=== PATIENT | female | born 1955 | race Caucasian/White ===

== ENCOUNTER 2018-10-31 16:24 | Emergency (ER) | payer OTHER ==
[2018-10-31] MEDS: SOD CHLORIDE 0.9% 1,000 ML IV (17:30)
[2018-10-31] MEDS: CEFTRIAXONE 1 GM/50 ML (PMX) 50 ML IVPB (17:31)
[2018-10-31] MEDS: ALBUTEROL 0.083% (NEB) 2.5 MG/3 ML AMP HHN (17:36)
[2018-10-31] MEDS: IPRATROPIUM (NEB) 0.5 MG/2.5 ML AMP HHN (17:36)
[2018-10-31 17:37] LABS: ADD UMIC YES; UR ASCORBIC ACID NEGATIVE (NEGATIVE); UR BILIRUBIN (Dip) NEGATIVE (NEGATIVE); UR BLOOD (Dip) NEGATIVE (NEGATIVE); UR CLARITY SLIGHTLY CLOUDY (CLEAR); UR COLOR YELLOW (YELLOW); UR GLUCOSE (Dip) 3+ mg/dL (NEGATIVE); UR KETONES (Dip) NEGATIVE (NEGATIVE); UR LEUKOCYTE ESTERASE (Dip) TRACE Leu/ul (NEGATIVE); UR NITRITE (Dip) NEGATIVE (NEGATIVE); UR RBC 2 /HPF (0-5); UR SPECIFIC GRAVITY (Dip) 1.018 (1.003-1.030); UR SQUAMOUS EPITHELIAL CELL FEW /HPF (FEW); UR TOTAL PROTEIN (Dip) 3+ mg/dl (NEGATIVE); UR UROBILINOGEN (Dip) NEGATIVE (NEGATIVE); UR WBC 11 /HPF (0-5)
[2018-10-31 17:45] LABS: ADD MAN DIFF? NO
[2018-10-31 17:47] LABS: BASOPHILS % 0.2 % (0.0-2.0); HEMATOCRIT 35.2 % (37.0-47.0); HEMOGLOBIN 11.5 g/dl (12.0-16.0); LYMPHOCYTES # 2.5 10^3/ul (0.8-2.9); MEAN CORPUSCULAR HEMOGLOBIN 30.2 pg (29.0-33.0); MEAN CORPUSCULAR HGB CONC 32.7 g/dl (32.0-37.0); MEAN CORPUSCULAR VOLUME 92.4 fl (82.0-101.0); MEAN PLATELET VOLUME 10.5 fl (7.4-10.4); MONOCYTE # 0.9 10^3/ul (0.3-0.9); NEUTROPHIL # 14.4 10^3/ul (1.6-7.5); NEUTROPHILS % 80.3 % (39.0-77.0); NUCLEATED RED BLOOD CELLS # 0.2 10^3/ul (0.0-0.0); NUCLEATED RED BLOOD CELLS% 0.9 /100WBC (0.0-0.0); PLATELET COUNT 350 10^3/UL (140-415); RED BLOOD COUNT 3.81 10^6/ul (4.20-5.40); RED CELL DISTRIBUTION WIDTH 13.2 % (11.5-14.5)
[2018-10-31] MEDS ORDERED: SODIUM CHLORIDE 0.9% 1L BAG IV* (17:52)
[2018-10-31 18:08] LABS: ANION GAP 21 (5-13); BLOOD UREA NITROGEN 70 mg/dl (7-20); CALCIUM 8.8 mg/dl (8.4-10.2); CARBON DIOXIDE 21 mmol/L (21-31); CHLORIDE 87 mmol/L (97-110); CREATININE 1.94 mg/dl (0.44-1.00); Estimated GFR 26 mL/min (>60); POTASSIUM 5.1 mmol/L (3.5-5.1); SODIUM 129 mmol/L (135-144)
[2018-10-31 18:17] LABS: GLUCOSE 526 mg/dl (70-220)
[2018-10-31] MEDS: AZITHROMYCIN 500MG/NS (PMX) 250 ML IV (18:36)
[2018-10-31] MEDS: ASPIRIN 325 MG TAB PO (18:52)
[2018-10-31] MEDS: INSULIN LISPRO 100 UNIT/ML VIAL SC (18:58)
[2018-10-31 18:59] LABS: INR 1.09; PROTIME 14.2 Sec (11.9-14.9); PT RATIO 1.1
[2018-10-31 19:00] LABS: PARTIAL THROMBOPLASTIN TIME 29.6 Sec (23.0-35.0)
[2018-10-31 19:05] LABS: LACTIC ACID 9.2 mmol/L (0.5-2.0)
[2018-10-31] MEDS: ACETAMINOPHEN 325 MG TAB PO (19:09)
== END 2018-10-31 19:24 | disposition short-term general hospital (02) ==
LOC: FTE 16:24 → E/R 19:24
DX: I21.01 ST elevation (STEMI) myocardial infarction involving left main coronary artery (principal); R06.02 Shortness of breath; R74.0 Nonspecific elevation of levels of transaminase and lactic acid dehydrogenase [LDH]; E11.65 Type 2 diabetes mellitus with hyperglycemia; R40.2252 Coma scale, best verbal response, oriented, at arrival to emergency department; R40.2362 Coma scale, best motor response, obeys commands, at arrival to emergency department; R40.2142 Coma scale, eyes open, spontaneous, at arrival to emergency department; I10 Essential (primary) hypertension; M54.9 Dorsalgia, unspecified; Z79.4 Long term (current) use of insulin
CPT/HCPCS: 71045; 80048; 81001; 82962; 83605; 84484; 85025; 85610; 85730; 87040; 87086; 87400; 93005; 94664; 96372; 96374; 96375; 99291-25

== ENCOUNTER 2019-01-24 12:17 | Inpatient (IN) | payer OTHER ==
[2019-01-24 15:52] LABS: ADD MAN DIFF? NO
[2019-01-24 15:56] LABS: WHITE BLOOD COUNT 10.2 10^3/ul (4.8-10.8)
[2019-01-24 15:56] LABS: BASOPHILS % 0.3 % (0.0-2.0); EOSINOPHILS % 0.2 % (0.0-7.0); HEMATOCRIT 44.9 % (37.0-47.0); HEMOGLOBIN 14.5 g/dl (12.0-16.0); LYMPHOCYTES # 3.5 10^3/ul (0.8-2.9); LYMPHOCYTES % 34.4 % (15.0-51.0); MEAN CORPUSCULAR HEMOGLOBIN 29.3 pg (29.0-33.0); MEAN CORPUSCULAR HGB CONC 32.3 g/dl (32.0-37.0); MEAN CORPUSCULAR VOLUME 90.7 fl (82.0-101.0); MEAN PLATELET VOLUME 10.2 fl (7.4-10.4); MONOCYTE # 0.4 10^3/ul (0.3-0.9); MONOCYTES % 4.2 % (0.0-11.0); NEUTROPHIL # 6.2 10^3/ul (1.6-7.5); NEUTROPHILS % 60.5 % (39.0-77.0); PLATELET COUNT 393 10^3/UL (140-415); RED BLOOD COUNT 4.95 10^6/ul (4.20-5.40); RED CELL DISTRIBUTION WIDTH 14.6 % (11.5-14.5)
[2019-01-24 16:12] LABS: ANION GAP 14 (5-13); BLOOD UREA NITROGEN 21 mg/dl (7-20); CALCIUM 10.2 mg/dl (8.4-10.2); CARBON DIOXIDE 30 mmol/L (21-31); CHLORIDE 99 mmol/L (97-110); CREATININE 0.93 mg/dl (0.44-1.00); Estimated GFR > 60 mL/min (>60); GLUCOSE 186 mg/dl (70-220); POTASSIUM 4.4 mmol/L (3.5-5.1); SODIUM 143 mmol/L (135-144)
[2019-01-24 16:23] LABS: TROPONIN-I 0.022 ng/ml (0.000-0.120)
[2019-01-24] MEDS ORDERED: ONDANSETRON 4 MG INJ IV ×2 (18:30→20:30)
[2019-01-24] MEDS ORDERED: ACETAMINOPHEN 325 MG TAB PO (18:30)
[2019-01-24] MEDS ORDERED: GLUCAGON 1 MG INJ IM (20:30)
[2019-01-24] MEDS ORDERED: morphine 2 MG INJ IV (20:30)
[2019-01-24] MEDS ORDERED: NACL 0.9% 3 ML SYG IV (20:30)
[2019-01-24] MEDS ORDERED: GLUCOSE GEL 15 GRAM TUBE PO ×2 (20:30)
[2019-01-24] MEDS ORDERED: DEXTROSE 50% 50 ML SYRINGE IV ×2 (20:30)
[2019-01-24] MEDS ORDERED: GLUCOSE GEL 15 GRAM TUBE BUCCAL (20:30)
[2019-01-24] MEDS: ACCU-CHEK XX (21:00)
[2019-01-24] MEDS: FERROUS SULFATE (EC) 325 MG TAB PO (21:30)
[2019-01-24] MEDS: SENNA TAB PO (21:31)
[2019-01-24] MEDS: metFORMIN 850 MG TAB PO (21:31)
[2019-01-24] MEDS: ATORVASTATIN 40 MG TAB PO (21:32)
[2019-01-24] MEDS: FAMOTIDINE 20 MG INJ IV (21:32)
[2019-01-24] MEDS: INSULIN ASP PROT/ASPART (70/30) PEN SC (22:48)
[2019-01-25] MEDS: ACCU-CHEK XX ×5 (02:00→21:00)
[2019-01-25 05:37] LABS: ADD MAN DIFF? NO
[2019-01-25 05:39] LABS: WHITE BLOOD COUNT 11.4 10^3/ul (4.8-10.8)
[2019-01-25 05:39] LABS: BASOPHILS % 0.4 % (0.0-2.0); EOSINOPHILS % 0.4 % (0.0-7.0); HEMATOCRIT 41.4 % (37.0-47.0); HEMOGLOBIN 13.4 g/dl (12.0-16.0); LYMPHOCYTES # 3.8 10^3/ul (0.8-2.9); LYMPHOCYTES % 33.2 % (15.0-51.0); MEAN CORPUSCULAR HEMOGLOBIN 29.5 pg (29.0-33.0); MEAN CORPUSCULAR HGB CONC 32.4 g/dl (32.0-37.0); MEAN PLATELET VOLUME 10.2 fl (7.4-10.4); MONOCYTE # 0.7 10^3/ul (0.3-0.9); MONOCYTES % 6.3 % (0.0-11.0); NEUTROPHIL # 6.8 10^3/ul (1.6-7.5); NEUTROPHILS % 59.3 % (39.0-77.0); PLATELET COUNT 365 10^3/UL (140-415); RED BLOOD COUNT 4.55 10^6/ul (4.20-5.40); RED CELL DISTRIBUTION WIDTH 14.7 % (11.5-14.5)
[2019-01-25 06:30] LABS: ALANINE AMINOTRANSFERASE 21 IU/L (13-69); ALBUMIN 3.6 g/dl (3.3-4.9); ALBUMIN/GLOBULIN RATIO 1.09; ALKALINE PHOSPHATASE 107 IU/L (42-121); ANION GAP 8 (5-13); ASPARTATE AMINO TRANSFERASE 30 IU/L (15-46); BILIRUBIN,INDIRECT 0.4 mg/dl (0-1.1); BILIRUBIN,TOTAL 0.4 mg/dl (0.2-1.3); BLOOD UREA NITROGEN 20 mg/dl (7-20); CALCIUM 9.6 mg/dl (8.4-10.2); CARBON DIOXIDE 32 mmol/L (21-31); CHLORIDE 104 mmol/L (97-110); CREATININE 1.01 mg/dl (0.44-1.00); Estimated GFR 56 mL/min (>60); GLUCOSE 63 mg/dl (70-220); POTASSIUM 3.9 mmol/L (3.5-5.1); SODIUM 144 mmol/L (135-144); TOTAL PROTEIN 6.9 g/dl (6.1-8.1)
[2019-01-25 07:14] LABS: HEMOGLOBIN A1C 7.9 % (0-5.9)
[2019-01-25] MEDS: FERROUS SULFATE (EC) 325 MG TAB PO ×2 (08:09→21:17)
[2019-01-25] MEDS: metFORMIN 850 MG TAB PO ×2 (08:09→18:03)
[2019-01-25] MEDS: ASPIRIN (EC) 81 MG TAB PO (08:10)
[2019-01-25] MEDS: FUROSEMIDE 20 MG TAB PO (08:11)
[2019-01-25] MEDS: FAMOTIDINE 20 MG INJ IV ×2 (08:12→21:16)
[2019-01-25] MEDS: ENOXAPARIN 30 MG/0.3 ML SYG SC (08:13)
[2019-01-25] MEDS: INSULIN ASPART [NOVOLOG] 3 ML PEN SC ×3 (10:08→18:12)
[2019-01-25] MEDS: ATORVASTATIN 40 MG TAB PO (21:16)
[2019-01-25] MEDS: SENNA TAB PO (21:17)
[2019-01-25] MEDS: INSULIN ASP PROT/ASPART (70/30) PEN SC (21:31)
[2019-01-26] MEDS: ACCU-CHEK XX ×5 (02:00→19:57)
[2019-01-26] MEDS: INSULIN ASPART [NOVOLOG] 3 ML PEN SC ×3 (07:36→17:49)
[2019-01-26] MEDS: FERROUS SULFATE (EC) 325 MG TAB PO ×2 (08:37→19:54)
[2019-01-26] MEDS: FUROSEMIDE 20 MG TAB PO (08:37)
[2019-01-26] MEDS: metFORMIN 850 MG TAB PO ×2 (08:37→17:41)
[2019-01-26] MEDS: ASPIRIN (EC) 81 MG TAB PO (08:38)
[2019-01-26] MEDS: FAMOTIDINE 20 MG INJ IV (08:39)
[2019-01-26] MEDS: ENOXAPARIN 30 MG/0.3 ML SYG SC (08:55)
[2019-01-26 15:21] LABS: PLATELET COUNT 354 10^3/UL (140-415)
[2019-01-26 15:26] LABS: INR 0.91; PROTIME 12.4 Sec (11.9-14.9)
[2019-01-26 15:27] LABS: PARTIAL THROMBOPLASTIN TIME 36.9 Sec (23.0-35.0); THROMBIN TIME 17.7 SEC (13.8-19.1)
[2019-01-26 15:31] LABS: PHOSPHORUS 3.8 mg/dl (2.5-4.9)
[2019-01-26 15:31] LABS: CHOL/HDL RATIO 3.5 RATIO; CHOLESTEROL 158 mg/dl (100-200); HDL CHOLESTEROL 44 mg/dl (35-98); LDL CHOLESTEROL,CALCULATED 76 mg/dl; MAGNESIUM 1.6 mg/dl (1.7-2.5); TRIGLYCERIDES 189 mg/dl (0-149)
[2019-01-26 16:15] LABS: ERYTHROCYTE SEDIMENTATION RATE 45 mm/Hr (0-30)
[2019-01-26] MEDS: ATORVASTATIN 40 MG TAB PO (19:54)
[2019-01-26] MEDS: SENNA TAB PO (19:54)
[2019-01-26] MEDS: INSULIN ASP PROT/ASPART (70/30) PEN SC (20:03)
[2019-01-26 20:58] LABS: B-TYPE NATRIURETIC PEPTIDE 3530 PG/ML (0-125)
[2019-01-26 22:17] LABS: RAPID PLASMA REAGIN NONREACTIVE (NR)
[2019-01-27 01:54] LABS: TROPONIN-I 0.025 ng/ml (0.000-0.120)
[2019-01-27] MEDS: ACCU-CHEK XX ×5 (02:00→21:00)
[2019-01-27 07:52] LABS: TROPONIN-I 0.016 ng/ml (0.000-0.120)
[2019-01-27 07:57] LABS: CHOL/HDL RATIO 3.3 RATIO; HDL CHOLESTEROL 41 mg/dl (35-98); LDL CHOLESTEROL,CALCULATED 54 mg/dl; TRIGLYCERIDES 211 mg/dl (0-149)
[2019-01-27 07:57] LABS: CHOLESTEROL 137 mg/dl (100-200)
[2019-01-27] MEDS: INSULIN ASPART [NOVOLOG] 3 ML PEN SC ×3 (08:05→17:33)
[2019-01-27] MEDS: FERROUS SULFATE (EC) 325 MG TAB PO ×2 (08:15→20:07)
[2019-01-27] MEDS: metFORMIN 850 MG TAB PO ×2 (08:15→17:57)
[2019-01-27] MEDS: ASPIRIN (EC) 81 MG TAB PO (08:15)
[2019-01-27] MEDS: FUROSEMIDE 20 MG TAB PO (08:16)
[2019-01-27] MEDS: ENOXAPARIN 30 MG/0.3 ML SYG SC (08:29)
[2019-01-27 09:26] LABS: AMPHETAMINE/METHAMPHETAMINE NEGATIVE (NEGATIVE); BARBITURATES NEGATIVE (NEGATIVE); BENZODIAZEPINES NEGATIVE (NEGATIVE)
[2019-01-27 09:27] LABS: CANNABINOIDS NEGATIVE (NEGATIVE); COCAINE NEGATIVE (NEGATIVE); OPIATES NEGATIVE (NEGATIVE)
[2019-01-27] MEDS: ATORVASTATIN 40 MG TAB PO (20:07)
[2019-01-27] MEDS: SENNA TAB PO (20:07)
[2019-01-27] MEDS: INSULIN ASP PROT/ASPART (70/30) PEN SC (20:12)
[2019-01-28] MEDS: ACCU-CHEK XX ×5 (02:00→20:43)
[2019-01-28] MEDS: INSULIN ASPART [NOVOLOG] 3 ML PEN SC ×3 (08:02→17:54)
[2019-01-28] MEDS: FUROSEMIDE 20 MG TAB PO (08:15)
[2019-01-28] MEDS: metFORMIN 850 MG TAB PO ×2 (08:15→18:06)
[2019-01-28] MEDS: FERROUS SULFATE (EC) 325 MG TAB PO ×2 (08:15→20:24)
[2019-01-28] MEDS: ASPIRIN (EC) 81 MG TAB PO (08:15)
[2019-01-28] MEDS: ENOXAPARIN 30 MG/0.3 ML SYG SC (08:28)
[2019-01-28] MEDS: SENNA TAB PO (20:24)
[2019-01-28] MEDS: ATORVASTATIN 40 MG TAB PO (20:24)
[2019-01-28] MEDS: INSULIN ASP PROT/ASPART (70/30) PEN SC (20:31)
[2019-01-29] MEDS: ACCU-CHEK XX ×5 (02:00→21:47)
[2019-01-29] MEDS: INSULIN ASPART [NOVOLOG] 3 ML PEN SC ×4 (07:50→17:19)
[2019-01-29] MEDS: metFORMIN 850 MG TAB PO ×2 (08:00→17:13)
[2019-01-29] MEDS: FERROUS SULFATE (EC) 325 MG TAB PO ×2 (08:08→22:01)
[2019-01-29] MEDS: BENAZEPRIL 10 MG TAB PO (09:00)
[2019-01-29] MEDS: FUROSEMIDE 20 MG TAB PO (09:00)
[2019-01-29] MEDS: ENOXAPARIN 30 MG/0.3 ML SYG SC (09:00)
[2019-01-29] MEDS: ASPIRIN (EC) 81 MG TAB PO (09:00)
[2019-01-29] MEDS: SENNA TAB PO (21:00)
[2019-01-29] MEDS: ATORVASTATIN 40 MG TAB PO (22:02)
[2019-01-29] MEDS: INSULIN ASP PROT/ASPART (70/30) PEN SC (22:08)
[2019-01-30] MEDS: ACCU-CHEK XX ×4 (02:58→14:17)
[2019-01-30 05:22] LABS: WHITE BLOOD COUNT 9.3 10^3/ul (4.8-10.8)
[2019-01-30 05:22] LABS: ADD MAN DIFF? NO; BASOPHIL # 0.1 10^3/ul (0.0-0.1); BASOPHILS % 0.6 % (0.0-2.0); EOSINOPHILS # 0.2 10^3/ul (0.0-0.5); EOSINOPHILS % 1.9 % (0.0-7.0); HEMATOCRIT 38.7 % (37.0-47.0); HEMOGLOBIN 12.5 g/dl (12.0-16.0); LYMPHOCYTES # 4.5 10^3/ul (0.8-2.9); LYMPHOCYTES % 48.2 % (15.0-51.0); MEAN CORPUSCULAR HEMOGLOBIN 29.2 pg (29.0-33.0); MEAN CORPUSCULAR HGB CONC 32.3 g/dl (32.0-37.0); MEAN CORPUSCULAR VOLUME 90.4 fl (82.0-101.0); MEAN PLATELET VOLUME 9.8 fl (7.4-10.4); MONOCYTE # 0.6 10^3/ul (0.3-0.9); MONOCYTES % 6.9 % (0.0-11.0); NEUTROPHIL # 3.9 10^3/ul (1.6-7.5); NEUTROPHILS % 42.2 % (39.0-77.0); PLATELET COUNT 336 10^3/UL (140-415); RED BLOOD COUNT 4.28 10^6/ul (4.20-5.40); RED CELL DISTRIBUTION WIDTH 14.8 % (11.5-14.5)
[2019-01-30 05:47] LABS: INR 0.84; PROTIME 11.6 Sec (11.9-14.9); PT RATIO 0.9
[2019-01-30 05:50] LABS: ANION GAP 9 (5-13); BLOOD UREA NITROGEN 28 mg/dl (7-20); CALCIUM 9.3 mg/dl (8.4-10.2); CARBON DIOXIDE 31 mmol/L (21-31); CHLORIDE 103 mmol/L (97-110); CREATININE 0.96 mg/dl (0.44-1.00); Estimated GFR 59 mL/min (>60); GLUCOSE 148 mg/dl (70-220); POTASSIUM 3.8 mmol/L (3.5-5.1); SODIUM 143 mmol/L (135-144)
[2019-01-30] MEDS ORDERED: PROPOFOL 200 MG INJ (07:00)
[2019-01-30] MEDS ORDERED: LIDOCAINE 2% (SDV) 5 ML INJ (07:00)
[2019-01-30] MEDS: metFORMIN 850 MG TAB PO ×2 (08:00→17:12)
[2019-01-30] MEDS: INSULIN ASPART [NOVOLOG] 3 ML PEN SC ×3 (08:00→17:28)
[2019-01-30] MEDS: BENAZEPRIL 10 MG TAB PO ×2 (08:10→16:16)
[2019-01-30] MEDS: FERROUS SULFATE (EC) 325 MG TAB PO (08:10)
[2019-01-30] MEDS: FUROSEMIDE 20 MG TAB PO ×2 (08:10→16:15)
[2019-01-30] MEDS: ASPIRIN (EC) 81 MG TAB PO ×2 (08:10→16:16)
[2019-01-30] MEDS: ENOXAPARIN 30 MG/0.3 ML SYG SC (08:11)
[2019-01-30] MEDS ORDERED: LABETALOL HCL 20MG INJ IV (11:30)
[2019-01-30] MEDS ORDERED: hydrALAzine 20 MG INJ IV (11:30)
[2019-01-30] MEDS ORDERED: MIDAZOLAM 1 MG/ML 2 ML INJ IV (11:30)
[2019-01-30] MEDS ORDERED: EPHEDrine SULFATE 50 MG/5 ML SYG IV (11:30)
[2019-01-30] MEDS ORDERED: FENTAnyl 50 MCG/ML VIAL IV ×2 (11:30)
[2019-01-30] MEDS ORDERED: DIPHENHYDRAMINE 50 MG INJ IV (11:30)
[2019-01-30] MEDS ORDERED: ALBUTEROL 0.083% (NEB) 2.5 MG/3 ML AMP HHN (11:30)
[2019-01-30] MEDS ORDERED: ONDANSETRON 4 MG INJ IV (11:30)
[2019-01-30] MEDS ORDERED: METOCLOPRAMIDE 10 MG INJ IV (11:30)
== END 2019-01-30 21:51 | disposition left against medical advice (07) | DRG 64 ==
LOC: E/R 12:17 → 6WM 18:27
DX: I63.231 Cerebral infarction due to unspecified occlusion or stenosis of right carotid arteries (principal); I63.40 Cerebral infarction due to embolism of unspecified cerebral artery; I10 Essential (primary) hypertension; E11.9 Type 2 diabetes mellitus without complications; G83.24 Monoplegia of upper limb affecting left nondominant side; I25.10 Atherosclerotic heart disease of native coronary artery without angina pectoris; E11.65 Type 2 diabetes mellitus with hyperglycemia; E78.5 Hyperlipidemia, unspecified; I25.2 Old myocardial infarction; I25.5 Ischemic cardiomyopathy; Z79.4 Long term (current) use of insulin; Z95.1 Presence of aortocoronary bypass graft
CPT/HCPCS: 36415; 70450; 70496; 70498; 70553; 71045; 80048; 80053; 80061; 80307; 82962; 83036; 83735; 83880; 84100; 84443; 84484; 85025; 85049; 85610; 85651; 85670; 85730; 86592; 92610; 93005; 93306; 93312; 93325; 93880; 97161; 97166; 99285-25; G0378